=== PATIENT | female | born 1960 | race Caucasian/White ===

== ENCOUNTER 2016-07-23 18:30 | Emergency (ER) | payer BC, MEDICARE ==
[~2016-07-23 18:30] MED LIST: FLEXERIL 10MG PO; LISINOPRIL40 MG PO; MELOXICAM7.5 MG PO; NEURONTIN300 M1 PO; PERCOCET 5/3251 TAB PO; PRAVACHOL20 MG PO; PRINIVIL20 MG PO
[2016-07-23] MEDS ORDERED: LISINOPRIL-HCT1 EAC1 PO (18:45)
[2016-07-23] MEDS ORDERED: SIMVASTATIN10 M1 PO (18:45)
[2016-07-23] MEDS ORDERED: CYMBALTA60 M1 PO (18:46)
[2016-07-23] MEDS ORDERED: TOPROL XL50 M1 PO (18:46)
[2016-07-23] MEDS ORDERED: ASPIRIN EC81 MG PO (18:47)
[2016-07-23] MEDS ORDERED: CELEBREX200 M1 PO (18:47)
[2016-07-23] MEDS ORDERED: PERCOCET 5-3251 EACH PO (18:48)
[2016-07-23] MEDS ORDERED: OXYCONTIN20 M2 PO (18:48)
[2016-07-23] MEDS ORDERED: SPIRIVA RESPIMAT4 G1 INH (18:49)
[2016-07-23] MEDS ORDERED: VENTOLIN HFA18 G2 INH (18:49)
[2016-09-25] MEDS ORDERED: HYDROCODON-ACE1 EA16 PO (09:51)
[2016-09-25] MEDS ORDERED: GLUCOPHAGE500 M3 PO (09:52)
[2016-09-25] MEDS ORDERED: CYMBALTA30 M1 PO (09:54)
[2016-09-25] MEDS ORDERED: DIAZEPAM5 M2 PO (09:55)
[2016-09-25] MEDS ORDERED: PROMETHAZINE HC25 M3 PO (09:56)
[2016-09-26] MEDS ORDERED: OMEPRAZOLE20 M4 PO (13:14)
[2016-11-04] MEDS ORDERED: VITAMIN D31000 UNI3 PO (18:45)
[2016-11-04] MEDS ORDERED: RANITIDINE HCL150 M3 PO (18:46)
[2016-11-04] MEDS ORDERED: ASPIRIN EC81 MG PO (18:47)
[2016-11-04] MEDS ORDERED: PRINIVIL20 M1 PO (19:04)
== END 2016-07-23 22:08 ==
LOC: EDMED 18:30
DX: G89.18 Other acute postprocedural pain (principal); M25.571 Pain in right ankle and joints of right foot; I10 Essential (primary) hypertension; E78.5 Hyperlipidemia, unspecified; Y82.8 Other medical devices associated with adverse incidents; Z79.899 Other long term (current) drug therapy
CPT/HCPCS: J2270